=== PATIENT | male | born 1970 | race Hispanic/Latino ===

== ENCOUNTER 2016-12-21 16:18 | Emergency (ER) | payer BC ==
[2016-12-21 17:17] LABS: Basophils % (Auto) 1.1 % (0.0-1.8); Eosinophils % (Auto) 1.4 % (0.0-4.3); Hematocrit 47.4 % (35.5-45.6); Hemoglobin 16.3 gm/dl (11.8-15.2); Mean Corpuscular HGB Conc 34 % (32-34); Mean Corpuscular Hemoglobin 31 pg (28-32); Mean Corpuscular Volume 89 fl (84-94); Platelet Count 206 K/mm3 (140-440); Red Blood Count 5.34 M/mm3 (3.65-5.03); Red Cell Distribution Width 13.6 % (13.2-15.2); White Blood Count 9.5 K/mm3 (4.5-11.0)
[2016-12-21 17:34] LABS: Anion Gap 18 mmol/L; Blood Urea Nitrogen 12 mg/dL (9-20); Calcium 8.8 mg/dL (8.4-10.2); Carbon Dioxide 25 mmol/L (22-30); Chloride 102.1 mmol/L (98-107); Glucose 103 mg/dL (75-100); Potassium 4.6 mmol/L (3.6-5.0); Sodium 140 mmol/L (137-145)
--- NOTE | 2016-12-21 18:43 | Emergency Department Report ---
HPI - General Chief Complaint: Chest Pain Time Seen by Provider: 12/21/16 17:50 - HPI HPI: This is a 46-year-old male who presents to the emergency department, driven in by EMS, with complaint of midsternal chest pain. There is some associated nausea without vomiting and some diaphoresis. 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 He was given some aspirin in route. He says that the chest pain is sharp in nature, occurs about every 20 minutes and lasts for about 5 minutes. He denies any shortness of breath, fever, back pain, swelling. Patient has a questionable history of a AL in the past as he says he had some type of stress test where he was told by a supervisor data processing that he might of had a heart attack in the past. He is a tobacco smoker but denies any illicit drug use. ED Past Medical Hx - Past Medical History Previous Medical History?: Yes Hx Heart Attack/AMI: Yes - Social History Smoking Status: Unknown if ever smoked - Medications Home Medications: Home Medications Medication Instructions Recorded Confirmed Last Taken Type No Known Home Medications [No 12/21/16 12/21/16 Unknown History Reported Home Medications] ED Review of Systems ROS: Stated complaint: CHEST PAIN Other details as noted in HPI Comment: All other systems reviewed and negative Constitutional: denies: chills, fever Eyes: denies: eye pain, eye discharge, vision change ENT: denies: ear pain, throat pain Respiratory: denies: cough, shortness of breath, wheezing Cardiovascular: chest pain. denies: palpitations Gastrointestinal: nausea. denies: vomiting Genitourinary: denies: urgency, dysuria Musculoskeletal: denies: back pain, joint swelling, arthralgia Skin: denies: rash, lesions Neurological: denies: headache, weakness, paresthesias Physical Exam - Physical Exam Vital Signs: Vital Signs 12/21/16 12/21/16 16:29 16:35 Pulse Rate 78 Respiratory 18 18 Rate Blood Pressure 117/90 [Right] O2 Sat by Pulse 97 97 Oximetry Physical Exam: GENERAL: The patient is well-developed well-nourished. HEENT: Normocephalic. Atraumatic. Extraocular motions are intact. Patient has moist mucous membranes. Pupils equal reactive to light bilaterally. NECK: Supple. Trachea is midline. CHEST/LUNGS: Clear to auscultation. There is no respiratory distress noted. HEART/CARDIOVASCULAR: Regular. There is no tachycardia. There is no gallop rub or murmur. ABDOMEN: Abdomen is soft, nontender. Patient has normal bowel sounds. There is no abdominal distention. SKIN: There is no rash. There is no edema. There is no diaphoresis. NEURO: The patient is awake, alert, and oriented. The patient is cooperative. The patient has no focal neurologic deficits. The patient has normal speech. MUSCULOSKELETAL: There is no tenderness or deformity. There is no limitation range of motion. There is no evidence of acute injury. ED Course Vital Signs 12/21/16 12/21/16 16:29 16:35 Pulse Rate 78 Respiratory 18 18 Rate Blood Pressure 117/90 [Right] O2 Sat by Pulse 97 97 Oximetry ED Medical Decision Making - Lab Data Result diagrams: 12/21/16 17:01 12/21/16 17:01 - EKG Data -: EKG Interpreted by Me EKG shows normal: sinus rhythm, axis, intervals, QRS complexes, ST-T waves Rate: normal - EKG Data When compared to previous EKG there are: previous EKG unavailable Interpretation: normal EKG - Radiology Data Radiology results: image reviewed interpreted by me: Chest x-ray did not show any acute process. Heart is normal shape and size. No effusions. No pneumothorax. No signs of pneumonia seen. - Medical Decision Making 46-year-old male presents with some midsternal chest pain about 3 PM, 2 hours prior to presentation. The pain is intermittent. EKG is completely normal without ST elevation AL, ischemia or dysrhythmia. Patient's labs have so far been unremarkable with negative troponins 2 and a negative d-dimer and there is no signs of infection. Chest x-ray does not show any acute process. The patient apparently had very elevated blood pressure when picked up by EMS and was given a sublingual nitroglycerin. Since he has been in the emergency department his blood pressure is been reasonable with some elevation in the diastolic. Patient has risk factors of tobacco abuse and some borderline hypertension. Patient was reevaluated multiple times over multiple hours and has remained stable. Most recently he says he is asymptomatic. Patient was offered admission for continued telemetry and possible cardio consultation or stress test but the patient says he is feeling improved and would rather just follow up with his primary care doctor tomorrow as he does not live in this area. The patient has been instructed to try to stay away from tobacco, caffeinated products. He also has been instructed to return to the emergency department or the closest ER with any return of his chest pain for further evaluation and admission. He understands and agrees the plan. The patient has a JORGE score of 1. He is low on the heart score. HEART Score for Major Cardiac Events from [email or web address] on 12/21/2016 All calculations should be rechecked by clinician prior to use RESULT SUMMARY: 3 points Low Score (0-3 points) Risk of MACE of 0.9-1.7%. INPUTS: History > 1 = Moderately suspicious EKG > 0 = Normal Age > 1 = 45-65 Risk factors > 1 = 1-2 risk factors Troponin > 0 = normal limit - Differential Diagnosis AL, costochondritis, GERD, PE Critical Care Time: No Critical care attestation.: If time is entered above; I have spent that time in minutes in the direct care of this critically ill patient, excluding procedure time. ED Disposition Clinical Impression: Tobacco abuse Chest pain Qualifiers: Chest pain type: unspecified Qualified Code(s): R07.9 - Chest pain, unspecified Disposition: DISCHARGED TO HOME OR SELFCARE Is pt being admited?: No Condition: Stable Instructions: Chest Pain (ED) Additional Instructions: Please follow-up with your primary care physician tomorrow. It is also recommended that you find a supervisor data processing for follow-up back at home. Return to the emergency department or go to the closest emergency department with any return of your chest pain or any acute distress. Please try and quit smoking. Please try and stay away from caffeinated products and foods high in salt. Referrals: PRIMARY CARE, [Primary Care Provider] - [facility] Time of Disposition: 21:00
[2016-12-21 21:09] VITALS: BP 132/99
--- NOTE | 2016-12-22 07:19 | XRay Report ---
Single view chest: History: Chest pain. Findings: Normal cardiomediastinal silhouette. Trachea is midline. No consolidation, pneumothorax or pleural effusion. Impression: No acute cardiopulmonary findings.
== END 2016-12-21 21:07 | disposition home or self-care (01) ==
LOC: ED 16:18
DX: F17.200 Nicotine dependence, unspecified, uncomplicated (principal); R07.2 Precordial pain; I25.2 Old myocardial infarction
CPT/HCPCS: 36415; 71010; 80048; 84484; 85025; 85379; 93005; 93010; 99285